=== PATIENT | female | born 1945 ===

== ENCOUNTER → 2020-11-07 09:15 | Outpatient (CLI) | payer OTHER | END | disposition home or self-care (01) | LOC: LAB 09:15 | PROVIDERS: ATTEND Orthopaedic Surgery | DX: E83.42 Hypomagnesemia (principal); M85.88 Other specified disorders of bone density and structure, other site; E56.8 Deficiency of other vitamins; E88.89 Other specified metabolic disorders; M81.8 Other osteoporosis without current pathological fracture ==